=== PATIENT | male | born 1985 | race Caucasian/White ===

== ENCOUNTER 2016-12-30 02:27 | Emergency (ER) | payer MEDICAID ==
[~2016-12-30] VITALS: Ht 188 cm; Wt 138.6 kg
[2016-12-30 04:50] VITALS: BP 136/83
== END 2016-12-30 06:02 | disposition left against medical advice (07) ==
LOC: EMS 02:29
DX: R07.9 Chest pain, unspecified (principal); R06.02 Shortness of breath; F12.10 Cannabis abuse, uncomplicated; F17.210 Nicotine dependence, cigarettes, uncomplicated; E78.5 Hyperlipidemia, unspecified; Z90.49 Acquired absence of other specified parts of digestive tract
CPT/HCPCS: 93005; 99283